=== PATIENT | female | born 1930 | race Caucasian/White ===

== ENCOUNTER 2016-09-30 09:55 | Day surgery (SDC) | payer MEDICARE, OTHER ==
[~2016-09-30] VITALS: Ht 152.4 cm; Wt 55.2 kg
[2016-09-30 10:32] VITALS: BP 124/86; PULSE 89; TEMP 98.3
[2016-09-30] MEDS ORDERED: LEVOXYL0.025 MG PO (10:49)
[2016-09-30] MEDS ORDERED: LOPRESSOR 225 MG/TAB PO (10:50)
[2016-09-30] MEDS ORDERED: LIVALO1 MG PO (10:51)
[2016-09-30] MEDS ORDERED: DIOVAN 40MG40 MG PO (10:52)
[2016-09-30] MEDS ORDERED: COMPLETE SENIOR1 TA1 PO (10:53)
[2016-09-30] MEDS ORDERED: FIBERCON PO (10:53)
[2016-09-30] MEDS ORDERED: PRESERVISION1 SGL PO (10:54)
[2016-09-30] MEDS ORDERED: THE MEDICINE S200 M2 PO (10:55)
[2016-09-30] MEDS ORDERED: VITAMIN D32000 IU PO (10:55)
[2016-09-30] MEDS ORDERED: PREVACID24HROTC PO (11:32)
[2016-09-30] MEDS ORDERED: REQUIP0.25 MG PO (11:33)
[2016-09-30] MEDS ORDERED: RESTORIL 1515 MG/CAP PO (11:34)
[2016-09-30] MEDS ORDERED: LIDODERM 5% PATC1 EA TP (11:34)
[2016-09-30] MEDS ORDERED: SPIRIVA RESPIMAT4 GM IH (11:35)
[2016-09-30] MEDS ORDERED: ADVIL PM 38 MG-1 TAB PO (11:36)
[2016-09-30] MEDS ORDERED: MIRALAX PA17 GM/Dose PO (11:36)
[2016-09-30 12:35] VITALS: BP 111/68; PULSE 76; TEMP 97.8
[2016-09-30 12:45] VITALS: BP 112/67; PULSE 90
[2016-09-30 13:00] VITALS: BP 110/78; PULSE 84
[2016-09-30 13:15] VITALS: BP 95/70; PULSE 83
[2016-09-30 13:32] VITALS: BP 107/66; PULSE 84
== END 2016-09-30 13:30 | disposition home or self-care (01) ==
LOC: SDCO 09:55
DX: K21.9 Gastro-esophageal reflux disease without esophagitis (principal); K56.69 Other intestinal obstruction; K57.30 Diverticulosis of large intestine without perforation or abscess without bleeding; E78.00 Pure hypercholesterolemia, unspecified; R63.4 Abnormal weight loss; Z87.891 Personal history of nicotine dependence; Z90.49 Acquired absence of other specified parts of digestive tract; Z90.10 Acquired absence of unspecified breast and nipple
CPT/HCPCS: J2250; J2405; J3010

== ENCOUNTER 2016-10-11 15:40 | Emergency (ER) | payer MEDICARE, OTHER ==
[~2016-10-11] VITALS: Ht 152.4 cm; Wt 55.9 kg
[~2016-10-11 15:40] MED LIST: ADVIL PM 38 MG-1 TAB PO; COMPLETE SENIOR1 TA1 PO; DIOVAN 40MG40 MG PO; FIBERCON PO; LEVOXYL0.025 MG PO; LIDODERM 5% PATC1 EA TP; LIVALO1 MG PO; LOPRESSOR 225 MG/TAB PO; MIRALAX PA17 GM/Dose PO; PRESERVISION1 SGL PO; PREVACID24HROTC PO; REQUIP0.25 MG PO; RESTORIL 1515 MG/CAP PO; SPIRIVA RESPIMAT4 GM IH; THE MEDICINE S200 M2 PO; VITAMIN D32000 IU PO
[2016-10-11 17:01] LABS: BASO # 0.1 (0.0-0.2); BASO % 0.6 % (0.0-2.0); EOS # 0.1 (0.0-0.7); EOS % 1.8 % (0-4.0); GRAN # 5.7 (1.4-6.5); GRAN % 72.5 % (42.2-75.2); HEMATOCRIT 42.1 % (37.0-47.0); HEMOGLOBIN 13.6 g/dl (12.5-16.0); LYMPH # 1.3 (1.2-3.4); LYMPH % 16.1 % (20.0-51.0); MEAN CELL VOLUME 86 fl (80.0-100.0); MEAN CORPUSCULAR HEMOGLOBIN 28 pg (27.0-31.0); MEAN CORPUSCULAR HGB CONC 32 g/dl (33.0-37.0); MEAN PLATELET VOLUME 9.7 fl (7.4-10.4); MONO # 0.7 (0.1-0.6); MONO % 8.5 % (1.7-9.3); PLATELET COUNT 248 K/mm3 (130-400); RED BLOOD COUNT 4.87 M/mm3 (4.10-5.30); WHITE BLOOD COUNT 7.8 K/mm3 (4.8-10.8)
[2016-10-11 17:05] LABS: CREATININE, serum 0.89 mg/dL (0.52-1.25)
[2016-10-11] MEDS ORDERED: LEVAQUIN 5500 MG/TA1 PO (17:35)
[2016-10-11] MEDS ORDERED: TYLENOL W/COD1 UDTAB PO (17:35)
[2016-10-11 17:55] VITALS: BP 143/83; PULSE 95
== END 2016-10-11 18:00 | disposition home or self-care (01) ==
LOC: COL.ER 15:40
PROVIDERS: Emergency Medicine
DX: S09.90XA Unspecified injury of head, initial encounter (principal); W01.198A Fall on same level from slipping, tripping and stumbling with subsequent striking against other object, initial encounter; Y92.000 Kitchen of unspecified non-institutional (private) residence as the place of occurrence of the external cause; S01.01XA Laceration without foreign body of scalp, initial encounter; I10 Essential (primary) hypertension; E03.9 Hypothyroidism, unspecified; Z23 Encounter for immunization
CPT/HCPCS: J7040

== ENCOUNTER 2016-11-02 10:55 | Inpatient (IN) | payer MEDICARE, OTHER ==
[2016-11-02] VITALS (10 sets, daily range): BP systolic 102–148; BP diastolic 48–89; PULSE 59–82; TEMP 97.8
[~2016-11-02] VITALS: Ht 152.4 cm; Wt 55.0 kg
[~2016-11-02 10:55] MED LIST changes: +LEVAQUIN 5500 MG/TA1 PO; +TYLENOL W/COD1 UDTAB PO
[2016-11-02 11:49] LABS: HEMOGLOBIN 14.9 g/dl (12.5-16.0); MEAN CELL VOLUME 85 fl (80.0-100.0); MEAN CORPUSCULAR HEMOGLOBIN 28 pg (27.0-31.0); MEAN CORPUSCULAR HGB CONC 33 g/dl (33.0-37.0); MEAN PLATELET VOLUME 9.8 fl (7.4-10.4); PLATELET COUNT 278 K/mm3 (130-400); RED BLOOD COUNT 5.29 M/mm3 (4.10-5.30); REDCELL DISTRIBUTION WIDTH-CV 14.1 % (11.5-14.5); WHITE BLOOD COUNT 7.1 K/mm3 (4.8-10.8)
[2016-11-02] MEDS ORDERED: ASPIRIN 32325 MG/TA1 PO (11:54)
[2016-11-02 11:57] LABS: ALBUMIN 4.6 gm/dL (3.5-5.0); BILIRUBIN,TOTAL 0.7 mg/dL (0.0-1.0); CALCIUM 9.5 mg/dL (8.4-10.2); CREATININE, serum 0.9 mg/dL (0.52-1.25); POTASSIUM 4.1 mmol/L (3.4-5.0); TOTAL PROTEIN 8.1 gm/dL (6.4-8.2)
[2016-11-02] MEDS ORDERED: NIGHT TIME SLEE25 MG PO (11:58)
[2016-11-03 01:47] VITALS: BP 93/55; PULSE 87; TEMP 98.1
[2016-11-03 05:36] VITALS: BP 91/50; PULSE 88; TEMP 98.7
[2016-11-03 07:52] LABS: HEMATOCRIT 36.4 % (37.0-47.0); HEMOGLOBIN 11.7 g/dl (12.5-16.0)
[2016-11-03 08:18] LABS: CALCIUM 8.3 mg/dL (8.4-10.2); CREATININE, serum 0.77 mg/dL (0.52-1.25); MAGNESIUM 1.7 mg/dL (1.6-2.3); PHOSPHOROUS 3.5 mg/dL (2.5-4.5); POTASSIUM 4.2 mmol/L (3.4-5.0)
[2016-11-03 09:07] VITALS: BP 117/54; PULSE 76; TEMP 98.6
[2016-11-03 13:26] VITALS: BP 104/36; PULSE 96; TEMP 98.3
[2016-11-03 13:53] LABS: HEMATOCRIT 36.2 % (37.0-47.0); HEMOGLOBIN 11.7 g/dl (12.5-16.0)
[2016-11-03 17:18] VITALS: BP 128/77; PULSE 87; TEMP 97.5
[2016-11-03 22:29] VITALS: BP 113/60; PULSE 68; TEMP 98.2
[2016-11-04 01:19] VITALS: BP 112/85; PULSE 80; TEMP 98.5
[2016-11-04 05:32] VITALS: BP 112/43; PULSE 63; TEMP 98.7
[2016-11-04 09:42] VITALS: BP 107/68; PULSE 76; TEMP 98.4
[2016-11-04] MEDS ORDERED: ROXICODONE 55 MG/TAB PO (12:01)
[2016-11-04] MEDS ORDERED: TYLENOL 500MG500 MG PO (12:02)
== END 2016-11-04 13:45 | disposition home or self-care (01) | DRG 331 ==
LOC: OR 10:55 → SURG 13:45
PROVIDERS: Surgery
PROC: 8E0W0CZ Robotic Assisted Procedure of Trunk Region, Open Approach (ICD-10-PCS; 2016-11-02)
PROC: 0DTN0ZZ Resection of Sigmoid Colon, Open Approach (ICD-10-PCS; principal; 2016-11-02 13:45)
DX: K57.32 Diverticulitis of large intestine without perforation or abscess without bleeding (principal); I10 Essential (primary) hypertension
CPT/HCPCS: A4315; A9284; J1170; J1650; J2405; J2704; J3010; J7120

== ENCOUNTER → 2017-01-24 | Outpatient (CLI) | payer MEDICARE, OTHER ==
[~2017-01-24] MED LIST changes: +ASPIRIN 32325 MG/TA1 PO; +NIGHT TIME SLEE25 MG PO; +ROXICODONE 55 MG/TAB PO; +TYLENOL 500MG500 MG PO
== END ==
LOC: COL.RAD 09:45
DX: M54.5 Low back pain (principal); I10 Essential (primary) hypertension

== ENCOUNTER → 2017-03-20 | Outpatient (CLI) | payer MEDICARE, OTHER | LOC: COL.RAD 14:42 | DX: M43.16 Spondylolisthesis, lumbar region (principal); M47.816 Spondylosis without myelopathy or radiculopathy, lumbar region; M85.80 Other specified disorders of bone density and structure, unspecified site ==

== ENCOUNTER → 2017-03-20 | Outpatient (CLI) | payer MEDICARE, OTHER | LOC: MHCPAIN 13:02 | DX: G89.29 Other chronic pain (principal); M47.27 Other spondylosis with radiculopathy, lumbosacral region; M41.9 Scoliosis, unspecified; Z87.891 Personal history of nicotine dependence | CPT/HCPCS: G0463 ==

== ENCOUNTER → 2017-04-06 | Outpatient (CLI) | payer MEDICARE, OTHER | LOC: MHCPAIN 09:26 | DX: M47.27 Other spondylosis with radiculopathy, lumbosacral region (principal); M99.53 Intervertebral disc stenosis of neural canal of lumbar region; M43.16 Spondylolisthesis, lumbar region | CPT/HCPCS: J1100; Q9967 ==

== ENCOUNTER → 2017-04-19 | Outpatient (CLI) | payer MEDICARE, OTHER | LOC: MHCPAIN 10:44 | DX: G89.29 Other chronic pain (principal); M47.27 Other spondylosis with radiculopathy, lumbosacral region; Z87.891 Personal history of nicotine dependence | CPT/HCPCS: G0463 ==

== ENCOUNTER → 2017-06-12 | Outpatient (CLI) | payer MEDICARE, OTHER | LOC: COL.RAD 10:20 | DX: R41.0 Disorientation, unspecified (principal); G31.1 Senile degeneration of brain, not elsewhere classified | CPT/HCPCS: A9585 ==

== ENCOUNTER → 2017-06-15 | Outpatient (CLI) | payer MEDICARE, OTHER | LOC: MC.RAD 14:17 | DX: Z12.31 Encounter for screening mammogram for malignant neoplasm of breast (principal); N63.10 Unspecified lump in the right breast, unspecified quadrant; N63.20 Unspecified lump in the left breast, unspecified quadrant ==

== ENCOUNTER → 2017-06-23 | Outpatient (CLI) | payer MEDICARE, OTHER | LOC: MC.RAD 09:17 | DX: N64.89 Other specified disorders of breast (principal); R92.2 Inconclusive mammogram ==

== ENCOUNTER → 2018-01-30 | Outpatient (CLI) | payer MEDICARE, OTHER | LOC: MC.RAD 01-22 09:00 | DX: R92.2 Inconclusive mammogram (principal); N64.59 Other signs and symptoms in breast | CPT/HCPCS: G0279 ==

== ENCOUNTER 2018-10-26 08:57 | Day surgery (SDC) | payer MEDICARE, OTHER ==
--- NOTE | 2018-10-25 11:26 | NUR ---
Left message with procedure instructions and encouraged call back to review medical history questions prior to procedure.
[~2018-10-26] VITALS: Ht 152.4 cm; Wt 63.0 kg
[2018-10-26] VITALS (10 sets, daily range): BP systolic 95–149; BP diastolic 54–68; PULSE 60–74; TEMP 97.9–98.1
[2018-10-26] MEDS ORDERED: PRINIVIL10 MG PO (09:25)
[2018-10-26] MEDS ORDERED: MULTI VITAMINS1 TAB PO (09:25)
[2018-10-26] MEDS ORDERED: FIBER0.52 GM PO ×2 (09:26→09:46)
[2018-10-26] MEDS ORDERED: THE MEDICINE S200 M2 PO (09:27)
[2018-10-26] MEDS ORDERED: PRESERVISION1 SGL PO (09:27)
[2018-10-26] MEDS ORDERED: NEXIUM 24HR20 M1 PO (09:29)
[2018-10-26] MEDS ORDERED: VITAMIN D 1001000 IU PO (09:30)
[2018-10-26 09:35] LABS: HEMATOCRIT 42.8 % (37.0-47.0); HEMOGLOBIN 13.9 g/dl (12.5-16.0); MEAN CELL VOLUME 88 fl (80.0-100.0); MEAN CORPUSCULAR HEMOGLOBIN 29 pg (27.0-31.0); MEAN CORPUSCULAR HGB CONC 33 g/dl (33.0-37.0); MEAN PLATELET VOLUME 9.5 fl (7.4-10.4); PLATELET COUNT 260 K/mm3 (130-400); RED BLOOD COUNT 4.87 M/mm3 (4.10-5.30)
[2018-10-26] MEDS ORDERED: ALEVE 220MG220 MG PO (09:35)
[2018-10-26 09:42] LABS: CALCIUM 9.3 mg/dL (8.4-10.2); CREATININE, serum 1.03 (0.52-1.25); POTASSIUM 4.8 mmol/L (3.4-5.0)
[2018-10-26] MEDS ORDERED: ASPIRIN E.C. 8181 MG PO (09:48)
[2018-10-26] MEDS ORDERED: MUCINEX DM 30 M1 TE1 (09:49)
[2018-10-26 09:50] LABS: INR 0.9 (0.8-3.0); PROTHROMBIN TIME 10.9 SECONDS (9.7-12.8)
[2018-10-26] MEDS ORDERED: RT SPIRIVA18 MCG IH (09:51)
--- NOTE | 2018-10-26 12:00 | NUR ---
PLEASE SEE MERGE FOR ALL MEDICATION ADMINISTRATION TIMES, SEDATION ASSESSMENT DURING AND POST PROCEDURE.
--- NOTE | 2018-10-26 13:00 | NUR ---
Pt returned to [facility] 12 per bed s/p heart cath. Pt resting well, daughter at bedside.
--- NOTE | 2018-10-26 15:30 | NUR ---
Pt has ambulated, voided and earnest PO intake s n/v. PIV removed with catheter intact.
--- NOTE | 2018-10-26 16:00 | NUR ---
Pt discharged per w/c by nurse with daughter.
== END 2018-10-26 17:07 | disposition home or self-care (01) ==
LOC: COL.CAR 08:57
PROVIDERS: Internal Medicine Interventional Cardiology
DX: I25.10 Atherosclerotic heart disease of native coronary artery without angina pectoris (principal); R94.39 Abnormal result of other cardiovascular function study; Z79.82 Long term (current) use of aspirin; K21.9 Gastro-esophageal reflux disease without esophagitis; G72.9 Myopathy, unspecified; I10 Essential (primary) hypertension; J44.9 Chronic obstructive pulmonary disease, unspecified; E03.9 Hypothyroidism, unspecified; M41.9 Scoliosis, unspecified; G25.81 Restless legs syndrome; G47.00 Insomnia, unspecified; Z90.710 Acquired absence of both cervix and uterus; Z90.49 Acquired absence of other specified parts of digestive tract; Z82.49 Family history of ischemic heart disease and other diseases of the circulatory system; Z82.5 Family history of asthma and other chronic lower respiratory diseases; Z87.891 Personal history of nicotine dependence; Z88.0 Allergy status to penicillin; Z88.2 Allergy status to sulfonamides; Z88.1 Allergy status to other antibiotic agents; Z88.6 Allergy status to analgesic agent; Z88.8 Allergy status to other drugs, medicaments and biological substances
CPT/HCPCS: J1644; J2250; J3010; Q9967